=== PATIENT | female | born 1980 | race Two or more races ===

== ENCOUNTER → 2023-12-05 | Outpatient (CLI) | payer MEDICAID ==
[~2023-12-05] VITALS: Ht 170.2 cm; Wt 140.2 kg
[2023-12-05] MEDS: REGADENOSON 0.4 MG/5 ML SYRG IV ONE ×2 (10:31)
== END | disposition home or self-care (01) ==
LOC: XYW 08:49
PROVIDERS: ATTEND Specialist
DX: I10 Essential (primary) hypertension (principal); E11.9 Type 2 diabetes mellitus without complications; E78.5 Hyperlipidemia, unspecified
CPT/HCPCS: 78452; 93017; A9500; J2785